=== PATIENT | female | born 1995 | race Two or more races ===

== ENCOUNTER 2020-10-29 11:08 | Outpatient (CLI) | payer OTHER | END 2020-10-29 11:21 | disposition home or self-care (01) | LOC: RAD 11:08 | PROVIDERS: ATTEND Orthopaedic Surgery | DX: M25.561 Pain in right knee (principal) ==

== ENCOUNTER 2024-03-16 17:34 | Emergency (ER) | payer OTHER ==
[~2024-03-16] VITALS: Ht 114.3 cm; Wt 48.1 kg
[2024-03-16 18:25] VITALS: BP 105/66; O2SAT 100
[2024-03-16] MEDS ORDERED: 0.9 % SODIUM CHLORIDE 1,000 ML IV STA (18:46)
[2024-03-16] MEDS ORDERED: MORPHINE SULFATE 2 MG/ML SYRINGE IV ONE (19:00)
[2024-03-16] MEDS ORDERED: PIPERACILLIN/TAZOBACTAM SODIUM 3.375 GM VIAL IV ONE (19:00)
[2024-03-16 20:31] LABS: HEMATOCRIT 41.7 % (36.0-45.00); HEMOGLOBIN 14.7 g/dL (12.0-15.00); MEAN CELL VOLUME 101.4 fL (80.00-100.00); MEAN CORPUSCULAR HEMOGLOBIN 35.7 pg (27.00-32.0); MEAN CORPUSCULAR HGB CONC 35.2 g/dl (32.0-36.0); PLATELET COUNT 314 K/uL (150-450); RED BLOOD COUNT 4.11 M/uL (4.00-6.00); RED CELL DISTRIBUTION WIDTH 13.1 % (11.5-14.5)
[2024-03-16 20:52] LABS: INR 1.05; PARTIAL THROMBOPLASTIN TIME 27.6 SECONDS (22.0-34.0); PROTHROMBIN TIME 11.4 SECONDS (9.0-11.5)
[2024-03-16 20:55] LABS: ALBUMIN 3.2 gm/dL (3.4-5.0); BILIRUBIN TOTAL 0.46 mg/dL (0.3-1.2); CREATININE SERUM 1.07 mg/dL (0.55-1.02); GFR 61.51; GLOBULINA 3.9 G/DL (2.4-3.5); POTASSIUM 4.28 mEq/L (3.5-5.1); TOTAL PROTEIN 7.1 gm/dL (6.4-8.2)
[2024-03-16 22:12] LABS: URINE APPEARANCE Clear; URINE BILIRRUBIN Negative (NEGATIVE); URINE BLOOD Negative; URINE COLOR Yellow; URINE GLUCOSE Negative (NEGATIVE); URINE KETONE Trace (NEGATIVE); URINE LEUKOCYTE Negative; URINE NITRATE Negative; URINE PROTEIN Negative (NEGATIVE); URINE UROBILINOGEN 0.2 E.U./dl
[2024-03-16 22:24] LABS: URINE RBC 5.8 uL (0.0-20.8)
[2024-03-16 22:25] LABS: URINE EPITHELIAL CELLS 144.8 uL (0.0-38.8); URINE WBC 8.1 uL (0.0-23.2)
== END 2024-03-17 00:31 | disposition home or self-care (01) ==
LOC: ER 17:36
PROVIDERS: Emergency Medicine
DX: I88.0 Nonspecific mesenteric lymphadenitis (principal); K52.89 Other specified noninfective gastroenteritis and colitis; K43.9 Ventral hernia without obstruction or gangrene

== ENCOUNTER 2024-03-30 11:35 | Inpatient (IN) | payer OTHER ==
[~2024-03-30] VITALS: Ht 132.1 cm; Wt 46.7 kg
--- NOTE | 2024-03-30 12:04 | NUR ---
PACIENTE ALERTA Y ORIENTADA X3 EN COMPANIA DE FAMILIAR QUIEN REFIERE QUE PACIENTE LLEVA DOS HORAS CON ISAURO DOLOR ABDOMINAL, SE MONITOREAN S/V Y SE UBICA PACIENTE.
[2024-03-30] MEDS ORDERED: KETOROLAC TROMETHAMINE 30 MG VIAL IV ONE (12:30)
[2024-03-30] MEDS ORDERED: 0.9 % SODIUM CHLORIDE 1,000 ML IV SCH (12:30)
[2024-03-30] MEDS ORDERED: FAMOTIDINE/PF 20 MG/2 ML VIAL IV ONE (12:30)
--- NOTE | 2024-03-30 13:00 | NUR ---
SE LE ORIENTA A PACIENTE SOBRE LA ORDEN MEDICA, REFIERE ENTENDER LAS MISMAS. SE CANALIZA Y SE LE COLOCA EL IVF'S, SE LE NEERAJ LAS MUETRAS Y SE NOTIFICA SONOGRAMA MARYURI LA ORDEN MEDICA.
[2024-03-30 13:06] LABS: HEMATOCRIT 43.4 % (36.0-45.00); HEMOGLOBIN 15.2 g/dL (12.0-15.00); MEAN CORPUSCULAR HEMOGLOBIN 35.8 pg (27.00-32.0); MEAN CORPUSCULAR HGB CONC 35.1 g/dl (32.0-36.0); PLATELET COUNT 308 K/uL (150-450); RED BLOOD COUNT 4.25 M/uL (4.00-6.00); RED CELL DISTRIBUTION WIDTH 13.4 % (11.5-14.5)
[2024-03-30 13:36] LABS: CALCIUM 9.1 mg/dL (8.5-10.1); CREATININE SERUM 0.83 mg/dL (0.55-1.02); GFR 82.46; POTASSIUM 4.01 mEq/L (3.5-5.1)
[2024-03-30 14:36] LABS: PH,URINE 6.5 (5.0-8.0); URINE APPEARANCE Clear; URINE BILIRRUBIN Negative (NEGATIVE); URINE BLOOD Negative; URINE COLOR Yellow; URINE GLUCOSE Negative (NEGATIVE); URINE KETONE Negative (NEGATIVE); URINE LEUKOCYTE Negative; URINE NITRATE Negative; URINE PROTEIN Negative (NEGATIVE); URINE UROBILINOGEN 0.2 E.U./dl
[2024-03-30 14:39] LABS: URINE BACTERIA 1319.1 uL (0.0-1933); URINE EPITHELIAL CELLS 24.6 uL (0.0-38.8)
[2024-03-30 14:45] LABS: URINE RBC 0.9 uL (0.0-20.8); URINE WBC 1.2 uL (0.0-23.2)
[2024-03-30] MEDS ORDERED: MEPERIDINE HCL/PF 25 MG/ML VIAL IV ONE (15:30)
[2024-03-30 16:38] LABS: AMYLASE 50 U/L (25-115); LIPASE 31 U/L (13-75)
[2024-03-30] MEDS ORDERED: PANTOPRAZOLE SODIUM 40 MG/VIAL VIAL IV ONE (17:45)
[2024-03-30] MEDS ORDERED: MORPHINE SULFATE 4 MG/ML VIAL IV ONE (20:00)
[2024-03-30] MEDS ORDERED: METHYLPREDNISOLONE SOD SUCC 125 MG VIAL IV ONE (20:00)
[2024-03-30] MEDS ORDERED: 0.9 % SODIUM CHLORIDE 500 ML IV STA (22:05)
[2024-03-30] MEDS ORDERED: ONDANSETRON HCL 4 MG in 0.9 % SODIUM CHLORIDE 50 ML IV PRN (23:15)
[2024-03-30] MEDS ORDERED: DEXTROSE 5 % AND 0.9 % NACL 1,000 ML IV SCH (23:15)
[2024-03-30] MEDS ORDERED: SUCRALFATE 1 G TABLET PO SCH (23:15)
[2024-03-30] MEDS ORDERED: ONDANSETRON HCL 4 MG in 0.9 % SODIUM CHLORIDE 50 ML IV ONE (23:15)
[2024-03-30] MEDS ORDERED: HYOSCYAMINE SULFATE 0.125 MG TAB.SUBL PO ONE (23:15)
[2024-03-30] MEDS ORDERED: DIPHENHYDRAMINE HCL 50 MG/ML VIAL 1ML IV ONE (23:30)
[2024-03-31] MEDS ORDERED: MORPHINE SULFATE 4 MG/ML CARTRIDGE IV SCH ×2 (02:00→13:00)
[2024-03-31 02:09] VITALS: BP 98/68; O2SAT 99
[2024-03-31 02:10] LABS: INR 1.09; PARTIAL THROMBOPLASTIN TIME 32.5 SECONDS (22.0-34.0); PROTHROMBIN TIME 11.8 SECONDS (9.0-11.5)
[2024-03-31 02:57] VITALS: BP 108/72; O2SAT 96
[2024-03-31 09:00] VITALS: BP 97/63; O2SAT 99
[2024-03-31] MEDS ORDERED: PANTOPRAZOLE SODIUM 40 MG/VIAL VIAL IV SCH (09:00)
[2024-03-31] MEDS ORDERED: FAMOTIDINE/PF 20 MG in 0.9 % SODIUM CHLORIDE 8 ML IV PUSH SCH (17:00)
[2024-03-31 17:14] VITALS: BP 102/62
[2024-04-01 00:16] VITALS: BP 96/47
[2024-04-01 08:56] VITALS: BP 90/67; O2SAT 97
[2024-04-01] MEDS ORDERED: KETOROLAC TROMETHAMINE 30 MG VIAL IM PRN (09:17)
[2024-04-01 10:09] LABS: HEMATOCRIT 38.2 % (36.0-45.00); HEMOGLOBIN 13.2 g/dL (12.0-15.00); MEAN CELL VOLUME 102.9 fL (80.00-100.00); MEAN CORPUSCULAR HEMOGLOBIN 35.6 pg (27.00-32.0); MEAN CORPUSCULAR HGB CONC 34.6 g/dl (32.0-36.0); PLATELET COUNT 246 K/uL (150-450); RED BLOOD COUNT 3.72 M/uL (4.00-6.00); RED CELL DISTRIBUTION WIDTH 13.3 % (11.5-14.5)
[2024-04-01 10:21] LABS: ALBUMIN 2.8 gm/dL (3.4-5.0); BILIRUBIN TOTAL 0.49 mg/dL (0.3-1.2); CALCIUM 8.4 mg/dL (8.5-10.1); CREATININE SERUM 1.02 mg/dL (0.55-1.02); GLOBULINA 2.5 G/DL (2.4-3.5); POTASSIUM 3.69 mEq/L (3.5-5.1); TOTAL PROTEIN 5.3 gm/dL (6.4-8.2)
[2024-04-01 19:09] VITALS: BP 93/63
[2024-04-02 02:40] VITALS: BP 90/68; O2SAT 98
[2024-04-02 09:01] VITALS: BP 128/73; O2SAT 96
[2024-04-02 17:38] VITALS: BP 113/77
[2024-04-03 02:30] VITALS: BP 100/74; O2SAT 95
[2024-04-03 08:21] VITALS: BP 110/79
== END 2024-04-03 13:08 | disposition home or self-care (01) | DRG 392 ==
LOC: ER 11:35 → MEDI 23:18
PROVIDERS: Emergency Medicine; General Practice; Internal Medicine; ADMIT Student in an Organized Health Care Education/Training Program; ATTEND Student in an Organized Health Care Education/Training Program
PROC: BW40ZZZ Ultrasonography of Abdomen (ICD-10-PCS; principal; 2024-03-30)
PROC: BW21YZZ Computerized Tomography (CT Scan) of Abdomen and Pelvis using Other Contrast (ICD-10-PCS; 2024-03-30)
PROC: CF1C1ZZ Planar Nuclear Medicine Imaging of Hepatobiliary System, All using Technetium 99m (Tc-99m) (ICD-10-PCS; 2024-03-30)
DX: K90.49 Malabsorption due to intolerance, not elsewhere classified (principal); K43.9 Ventral hernia without obstruction or gangrene; Q90.9 Down syndrome, unspecified